=== PATIENT | female | born 1970 | race Caucasian/White ===

== ENCOUNTER → 2018-03-13 18:25 | Outpatient (CLI) | payer OTHER, SELFPAY ==
[2018-03-13 14:54] VITALS: BMI 24.1
[2018-03-19 09:18] LABS: HPV APTIMA, High Risk Negative (Negative)
--- OUTSIDE RECORDS SUMMARY | 2018-05-15 23:24 | XMS RPT_ITS ---
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 [address] [place] [address] OFFICE VISIT Date of Service: 03/13/18 MR#: [id number] Acct: [id number] Name: MALACHI DUKE Rep #: [id number] : 1970 Provider: Debbie Guillen MD Age/Sex: 47/F [place] [facility] [place]: [place]igned Intake Vital Signs03/13/18 Height 5 ft 1 in 03/13/18 Weight: 128 lb 03/13/18 Body Mass Index (BMI) 24.1 03/13/18 Blood Pressure 100/70 Intake Visit Reasons: ANNUAL Chief Complaint: est annual Vegetable Inspector Required: No Is patient in pain?: No Allergies No Known Allergies Allergy (Unverified 03/13/18 14:54) Medications NK 03/13/18 [History Confirmed 03/13/18] Is last menstrual period known: No Post menopausal: No Patient : No : No PFSH Family History Mother Hypertension CVA (cerebral vascular accident) Hyperlipidemia Thyroid disorder Father Cancer kidney brain Social History Smoking Status: Never smoker alcohol intake: never substance use type: does not use caffeine: Yes what type of physical activity do you participate in: walking seatbelt use: always do you feel safe at home: Yes 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 DateName GA/Weeks Outcome Route Bt WeighInfant GeLabor LgtAnesthesiDel LocatProvider FOB t n h a n HPI ANNUAL: Details: MALACHI DUKE is a 47 year old who presents for annual exam. 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 History of abnormal PAP: no Last mammogram: due History of abnormal mammogram: no Colon cancer screening: Other preventative health care screenings: pcp- dr acuna Female Reproductive History Cycle Length: 21-35 Bleeding Duration: 4 Control Method: vasectomy Questions: Metorrhagia: No, Sexually active: Yes, Dyspareunia: No, PCB: No ROS Const Constitutional: Reports as per HPI; denies poor appetite, fatigue, increased appetite, weight gain or weight loss Cardio Card: Denies chest pain Resp Resp: Denies dyspnea or cough GI GI: Reports as per HPI; denies bloating, abdominal pain, constipation, vomiting or nausea : Reports as per HPI and other; denies blood in urine, vaginal odor, vaginal itching, vaginal dryness, vaginal discharge, urinary urgency, urinary incontinence, urinary frequency, pelvic pain, painful urination, difficulty urinating, prolapse symptoms or nipple discharge Skin Skin/Breast: Denies breast pain, breast skin changes, nipple discharge, breast lump or changing lesions Exam Const General: cooperative, healthy appearing, comfortable, no acute distress, well developed, well groomed HENND Head: normal to inspection, normocephalic Ears: hearing grossly normal bilaterally, external ears normal Nose: external nose normal Face and sinus: normal facial exam Neck Neck: normal visual inspection, full ROM, no lymphadenopathy Thyroid: thyroid normal Chest Chest palpation AND inspection: normal inspection of the chest Breast inspection: normal inspection of the breasts, normal inspection of the axillae Breast palpation: normal palpation of the breasts, normal palpation of the axillae, no axillary lymphadenopathy Resp Effort AND Inspection: normal respiratory effort GI Inspection: normal to inspection, non-distended Palpation: no guarding, soft, no hepatosplenomegaly General: bladder normal to palpation External Female Exam: normal external appearance, normal appearance of the urethra, no lesions Urethra: normal appearance of the urethra, normal palpation Speculum Exam - Vagina: normal appearance of the vagina, normal vaginal discharge Speculum Exam - Cervix: normal appearance of the cervix, no cervical discharge, no lesions, nontender Bimanual Exam- Vagina AND Uterus: No cervical tenderness, normal bimanual exam, uterine size normal, bladder normal to palpation, uterine mobility normal, uterine consistency normal, uterus non-tender, no cervical motion tenderness Bimanual Exam- Adnexa, other: normal adnexae, no adnexal masses, adnexae non-tender Skin General: no rashes or lesions noted Neuro General: alert, moves all extremities, no focal motor deficits Extrem General: no pedal edema, normal to inspection Psych Appearance: grossly normal Mental Status: mental status grossly normal Affect: normal affect Speech and Movement: speech and movement normal Attitude: cooperative Assessment AND Plan Problems 1. Encounter for gynecological examination without abnormal finding Z01.419 Plan Cervical cancer screening: pap hpv Breast cancer screening: lam scr mamm other health maintenance examination reviewed and orders placed if needed. Encouraged maintenance of a healthy weight and active lifestyle and handout given. Annual exam handout including recommendations for good health guidelines, Calcium/vitamin D recommendations, and basic screening information given. Problem list up to date, see problem list details for any additional plan information. Follow up in one year for annual health maintenance exam or sooner if needed. Orders Orders: Coding Level of Care Code Off vis,new,prev 40-64yrs Diagnoses Encounter for gynecological examination without abnormal finding Z01.419 Gynecological examination findings: abnormal findings ABSENT 03/13/18 0964 <Electronically signed by Debbie Guillen MD> Date Debbie Castillo Signature: Date (if applicable) CC: ALLERGIES ALLERGIES DATE TYPE / CODE NAME / CODE REACTION SEVERITY SOURCE 03/13/2018 Drug No Known Unknown [facility] Allergy/4160 Allergies/F00 Hospital 17521(SNOMED [id number](RXNOR Repository CT) M) ENCOUNTERS ENCOUNTERS ADMIT/DISCHARGE ACCOUNT ADMITTING ENCOUNTER LOCATION SOURCE NUMBER CLASS 03/13/2018 [id number] Ambulatory [place] [facility] ing:[facility]SPEC Repository 03/13/2018/ [id number] Ambulatory BMSBuilding:Александр Sarkar [address] Repository PAYERS PAYERS ENCOUNTER GUARANTOR PAYER SUBSCRIBER SOURCE 03/13/2018 MALACHI A Primary MALACHI A [place] [id number] [facility] [id number] Number: Repository [id number]: [id number] (HP) Date:2487-06-21[address] [address]YE: 03/13/2018 Secondary NOT GIVENUNK [place] Insurance:SELF PAY [facility] Number: Effective Repository Date:2018-03-13 03/13/2018 MALACHI A Primary MALACHI A [place] [id number] [facility] [id number] Number: Repository [id number]: [phone] [id number] (HP) Date:[id number] [address]RH: 03/13/2018 Secondary NOT GIVENUNK [place] Insurance:SELF PAY [facility] Number: Effective Repository Date:2018-03-01
== END ==
PROVIDERS: Family Provider Family Medicine; PCP Family Medicine; Referring Provider Obstetrics & Gynecology; Visit Provider Obstetrics & Gynecology
DX: Z12.4 Encounter for screening for malignant neoplasm of cervix (principal)
CPT/HCPCS: 87624; 88175; G0145

== ENCOUNTER → 2018-04-20 15:00 | Outpatient (CLI) | payer OTHER, SELFPAY ==
[2018-03-13 14:54] VITALS: BMI 24.1
--- NOTE | 2018-04-20 15:11 | BI_ITS ---
MAMMOGRAPHY - BILATERAL SCREENING REASON FOR EXAM: Female, 47 years old. Routine annual screening examination. PERTINENT HISTORY: Non-contributory. TECHNIQUE: Digital bilateral breast waqar (3D mammographic acquisition) in the CC and MLO projections. 2-D mediolateral oblique (MLO) and craniocaudad (CC) views of both breasts were obtained. CAD: Full Field Digital Mammography with Computer Added Detection was performed. COMPARISON: Comparison is made with prior outside examination dated December 04, 2015. FINDINGS: Breast Composition: The breasts are extremely dense, which lowers the sensitivity of mammography. There are no dominant masses or suspicious calcifications. Stable appearance of the small bilateral axillary lymph nodes. No other significant abnormalities are identified. There has been no significant change since the prior study. BI/SCREENING MAMM (CAD), BILAT IMPRESSION: Stable bilateral screening mammogram. Yearly follow-up mammogram recommended. (A) ASSESSMENT CATEGORY: BIRADS Category 2: Benign. A letter regarding these results will be sent to the patient by the facility within 30 days. Approximately 10% of breast cancers are not detected by mammography. A normal mammogram should not delay biopsy of a clinically suspicious abnormality. [id number] Electronically Signed: Alfonso Banegas, at 9:02 EST , Service support ,
== END ==
PROVIDERS: Family Provider Family Medicine; PCP Family Medicine; Referring Provider Obstetrics & Gynecology; Visit Provider Obstetrics & Gynecology
DX: Z12.31 Encounter for screening mammogram for malignant neoplasm of breast (principal)
CPT/HCPCS: 77063; 77067

== ENCOUNTER → 2019-02-21 15:55 | Outpatient (CLI) | payer OTHER, SELFPAY ==
[2018-03-13 14:54] VITALS: BMI 24.1
== END ==
PROVIDERS: Family Provider Family Medicine; PCP Family Medicine; Referring Provider Family Medicine; Visit Provider Family Medicine
DX: N39.0 Urinary tract infection, site not specified (principal)
CPT/HCPCS: 87077; 87086; 87088; 87186

== ENCOUNTER → 2019-04-22 12:38 | Outpatient (CLI) | payer OTHER, SELFPAY ==
[2018-03-13 14:54] VITALS: BMI 24.1
[2019-03-18 14:49] VITALS: BMI 24.1
--- NOTE | 2019-04-22 12:39 | BI_ITS ---
MAMMOGRAPHY - BILATERAL SCREENING REASON FOR EXAM: Female, 48 years old. Routine annual screening examination. PERTINENT HISTORY: Non-contributory. TECHNIQUE: Digital bilateral breast conchis (3D mammographic acquisition) in the CC and MLO projections. 2-D mediolateral oblique (MLO) and craniocaudad (CC) views of both breasts were obtained. CAD: Full Field Digital Mammography with Computer Added Detection was performed. COMPARISON: Comparison is made with prior study dated April 20, 2018. FINDINGS: Breast Composition: The breasts are extremely dense, which lowers the sensitivity of mammography. There are no dominant masses or suspicious calcifications. Stable small benign-appearing bilateral axillary lymph nodes. No other significant abnormalities are identified. There has been no significant change since the prior study. BI/SCREEN MAMM (CAD) W/CONCHIS BILAT IMPRESSION: Stable bilateral screening mammogram. Yearly follow-up mammogram recommended. (A) ASSESSMENT CATEGORY: BIRADS Category 2: Benign. A letter regarding these results will be sent to the patient by the facility within 30 days. Approximately 10% of breast cancers are not detected by mammography. A normal mammogram should not delay biopsy of a clinically suspicious abnormality. [id number] Electronically Signed: Alfonso Banegas, at 13:24 EST , Service support ,
== END ==
PROVIDERS: Family Provider Family Medicine; PCP Family Medicine; Referring Provider Obstetrics & Gynecology; Visit Provider Obstetrics & Gynecology
DX: Z12.31 Encounter for screening mammogram for malignant neoplasm of breast (principal)
CPT/HCPCS: 77063; 77067

== ENCOUNTER → 2020-04-23 10:27 | Outpatient (CLI) | payer OTHER, SELFPAY ==
[2019-03-18 14:49] VITALS: BMI 24.1
[2020-04-23 09:46] VITALS: BMI 24.3
--- NOTE | 2020-04-23 10:35 | BI_ITS ---
MAMMOGRAPHY - BILATERAL SCREENING REASON FOR EXAM: Female, 49 years old. Routine annual screening examination. PERTINENT HISTORY: Non-contributory. TECHNIQUE: Digital bilateral breast conchis (3D mammographic acquisition) in the CC and MLO projections. 2-D mediolateral oblique (MLO) and craniocaudad (CC) views of both breasts were obtained. CAD: Full Field Digital Mammography with Computer Added Detection was performed. COMPARISON: Comparison is made with prior examination dated 04/22/2019 and 04/20/2018. FINDINGS: Breast Composition: The breasts are extremely dense, which lowers the sensitivity of mammography. There are no dominant masses or suspicious calcifications. No other significant abnormalities are identified. There has been no significant change since the prior study. BI/SCRN MAMM (CAD)W/CONCHIS BILAT IMPRESSION: Stable bilateral screening mammogram. Yearly follow-up mammogram recommended. (A) ASSESSMENT CATEGORY: BIRADS Category 1: Negative. A letter regarding these results will be sent to the patient by the facility within 30 days. Approximately 10% of breast cancers are not detected by mammography. A normal mammogram should not delay biopsy of a clinically suspicious abnormality. [id number] Electronically Signed: Alfonso Banegas MD at 11:14 EST , Service support ,
[2020-04-29 15:55] LABS: HPV APTIMA, High Risk Negative
== END ==
PROVIDERS: PCP Family Medicine; Referring Provider Obstetrics & Gynecology; Visit Provider Obstetrics & Gynecology
DX: Z12.31 Encounter for screening mammogram for malignant neoplasm of breast (principal); Z12.4 Encounter for screening for malignant neoplasm of cervix
CPT/HCPCS: 77063; 77067; 87624; 88175; G0145

== ENCOUNTER → 2020-04-23 | Outpatient (CLI) | payer OTHER, SELFPAY ==
[2020-04-23 09:46] VITALS: BMI 24.3
== END | disposition home or self-care (01) ==
LOC: LABSPEC 17:18
PROVIDERS: PCP Family Medicine; Visit Provider Obstetrics & Gynecology
DX: Z00.00 Encounter for general adult medical examination without abnormal findings (principal)
CPT/HCPCS: 87624; 88175; G0145

== ENCOUNTER 2021-04-26 12:28 | Outpatient (CLI) | payer OTHER, SELFPAY ==
--- NOTE | 2021-04-26 12:31 | BI_ITS ---
MAMMOGRAPHY - BILATERAL SCREENING REASON FOR EXAM: Female, 50 years old. Routine annual screening examination. PERTINENT HISTORY: Non-contributory. TECHNIQUE: Digital bilateral breast conchis (3D mammographic acquisition) in the CC and MLO projections. 2-D mediolateral oblique (MLO) and craniocaudad (CC) views of both breasts were obtained. CAD: Full Field Digital Mammography with Computer Added Detection was performed. COMPARISON: Comparison is made with prior study dated 04/23/2020 and 04/22/2019. FINDINGS: Breast Composition: The breasts are extremely dense, which lowers the sensitivity of mammography. There are no dominant masses or suspicious calcifications. No other significant abnormalities are identified. There has been no significant change since the prior study. BI/SCRN MAMM (CAD)W/CONCHIS BILAT IMPRESSION: Stable bilateral screening mammogram. Yearly follow-up mammogram recommended. (A) ASSESSMENT CATEGORY: BIRADS Category 1: Negative. A letter regarding these results will be sent to the patient by the facility within 30 days. Approximately 10% of breast cancers are not detected by mammography. A normal mammogram should not delay biopsy of a clinically suspicious abnormality. [id number] Electronically Signed: Alfonso Banegas MD at 12:59 EST ,
== END 2021-04-26 23:59 | disposition home or self-care (01) ==
LOC: OPBI 12:29
PROVIDERS: PCP Family Medicine; Visit Provider Obstetrics & Gynecology
DX: Z12.31 Encounter for screening mammogram for malignant neoplasm of breast (principal)
CPT/HCPCS: 77063; 77067

== ENCOUNTER → 2022-05-06 | Outpatient (CLI) | payer OTHER, SELFPAY ==
--- NOTE | 2022-05-06 13:58 | BI_ITS ---
MAMMOGRAPHY - BILATERAL SCREENING 3-D TOMOSYNTHESIS REASON FOR EXAM: Female, 51 years old. Routine screening PERTINENT HISTORY: No significant family history. TECHNIQUE: 2-D mammograms and 3-D Tomosynthesis of the breast (s) were performed. CAD was performed. COMPARISON: 04/22/2019 FINDINGS: The breast composition is heterogeneously dense that can obscure small breast masses. Scattered benign calcifications are seen. No dense spiculated masses or suspicious microcalcifications are identified. No architectural distortion is identified. There is no skin thickening or retraction. There has been no significant change since the prior study. BI/SCRN MAMM (CAD)W/CONCHIS BILAT IMPRESSION: No mammographic signs of malignancy. Routine yearly mammograms recommended. ASSESSMENT CATEGORY: BIRADS Category 2: Benign. A letter regarding these results will be sent to the patient by the facility within 30 days. FOLLOW UP RECOMMENDATION: Yearly follow up mammogram recommended. (A) Approximately 10% of breast cancers are not detected by mammography. A normal mammogram should not delay biopsy of a clinically suspicious abnormality. Electronically Signed: Jean-Claude Fischer MD at 14:27 EDT ,
== END | disposition home or self-care (01) ==
LOC: OPBI 13:56
PROVIDERS: PCP Family Medicine; Referring Provider Obstetrics & Gynecology; Visit Provider Obstetrics & Gynecology
DX: Z12.31 Encounter for screening mammogram for malignant neoplasm of breast (principal)
CPT/HCPCS: 77063; 77067

== ENCOUNTER → 2023-05-08 | Outpatient (CLI) | payer BC, SELFPAY ==
--- NOTE | 2023-05-08 13:37 | BI_ITS ---
MAMMOGRAPHY - BILATERAL SCREENING REASON FOR EXAM: Female, 52 years old. Routine annual screening examination. PERTINENT HISTORY: Non-contributory. TECHNIQUE: Digital bilateral breast conchis (3D mammographic acquisition) in the CC and MLO projections. 2-D mediolateral oblique (MLO) and craniocaudad (CC) views of both breasts were obtained. CAD: Full Field Digital Mammography with Computer Added Detection was performed. COMPARISON: Comparison is made with prior study dated May 06, 2022 and April 26, 2021. FINDINGS: Breast Composition: The breasts are extremely dense, which lowers the sensitivity of mammography. There are no dominant masses or suspicious calcifications. Stable small benign-appearing bilateral axillary lymph nodes. No other significant abnormalities are identified. There has been no significant change since the prior study. BI/SCRN MAMM (CAD)W/CONCHIS BILAT IMPRESSION: Stable bilateral screening mammogram. Yearly follow-up mammogram recommended. (A) ASSESSMENT CATEGORY: BIRADS Category 2: Benign. A letter regarding these results will be sent to the patient by the facility within 30 days. Approximately 10% of breast cancers are not detected by mammography. A normal mammogram should not delay biopsy of a clinically suspicious abnormality. [id number] Electronically Signed: Alfonso Banegas MD at 14:53 EDT ,
== END | disposition home or self-care (01) ==
LOC: OPBI 13:37
PROVIDERS: PCP Family Medicine; Referring Provider Obstetrics & Gynecology; Visit Provider Obstetrics & Gynecology
DX: Z12.31 Encounter for screening mammogram for malignant neoplasm of breast (principal)
CPT/HCPCS: 77063; 77067

== ENCOUNTER → 2024-05-24 | Outpatient (CLI) | payer BC, SELFPAY ==
--- NOTE | 2024-05-24 13:41 | BI_ITS ---
EXAM: SCRN MAMM (CAD)W/CONCHIS BILAT 05/24/2024 CLINICAL HISTORY: F, Age 53 y/o , BREAST CANCER SCREENING TECHNIQUE: Bilateral screening digital breast tomosynthesis with 2D and 3D images. Computer aided detection. COMPARISON: Prior exam(s) dated 05/08/2023. FINDINGS: TISSUE DENSITY: The breast tissue is heterogenously dense, which may obscure small masses. The mammogram demonstrates that the patient has dense breasts. Supplemental screening with whole breast ultrasound or MRI may be considered for further evaluation. Bilateral Breast Mammographic Findings: No significant masses, calcifications or other abnormalities are identified. BI/SCRN MAMM (CAD)W/CONCHIS BILAT IMPRESSION: Right Breast: BIRADS 1 NEGATIVE. Left Breast: BIRADS 1 NEGATIVE. OVERALL FINAL ASSESSMENT: BIRADS 1 NEGATIVE. RECOMMENDATION: Routine annual follow-up in 1 Year A letter with findings and recommendations will be mailed to the patient. Reading Location: [id number]
== END | disposition home or self-care (01) ==
LOC: OPBI 13:40
PROVIDERS: PCP Family Medicine; Referring Provider Obstetrics & Gynecology; Visit Provider Obstetrics & Gynecology
DX: Z12.31 Encounter for screening mammogram for malignant neoplasm of breast (principal)
CPT/HCPCS: 77063; 77067

== ENCOUNTER → 2024-12-09 | Outpatient (CLI) | payer OTHER, SELFPAY ==
--- NOTE | 2024-12-09 12:54 | US_ITS ---
PROCEDURE: PELVIC W/ TRANSVAGINAL REASON FOR EXAM: PMB LMP: November 26, 2024. TECHNIQUE: Procedure Code: USPELTVAG Modality: US Procedure: PELVIC W/ TRANSVAGINAL COMPARISON: None FINDINGS: Measurements: Uterus: 8.5 cm x 5.4 cm x 4.3 cm with a volume of 114.7 mL Endometrial Thickness: 6 mm. It is hyperechoic. Right Ovary: 2.7 cm x 2 cm x 1.1 cm with a volume of 3 mL. Left Ovary: 4.6 cm x 5 cm x 2.9 cm with a volume of 34.5 mL. TRANSABDOMINAL: Uterus: Heterogeneous echotexture of the uterine myometrium suggestive of fibroid change although no focal fibroid is seen. Endometrium: 6 mm. It is thickened for the postmenopausal phase. Right ovary: Normal size and echotexture. Left ovary: There is a 4 cm x 4.1 cm x 2.3 cm left ovarian cyst. Other: No large pelvic mass identified. Transvaginal sonography was performed to better visualize the endometrium. TRANSVAGINAL: Uterus: Heterogeneous echotexture suggestive of fibroid change. Endometrium: 6 mm. It is thickened. Right ovary: Normal size and echotexture. Left ovary: There is a 4 cm x 4.1 cm 2.3 cm left ovarian cyst. Other adnexal findings: None. Cul-de-sac: No free intraperitoneal fluid identified. Tenderness: No tenderness US/Pelvic w/ Transvaginal IMPRESSION: Left ovarian cyst. Heterogeneous echotexture of the uterus in keeping with fibroid change. Reading Location: [place] [address]
== END | disposition home or self-care (01) ==
PROVIDERS: PCP Family Medicine; Referring Provider Obstetrics & Gynecology; Visit Provider Obstetrics & Gynecology
DX: N95.0 Postmenopausal bleeding (principal)
CPT/HCPCS: 76830; 76856

== ENCOUNTER → 2024-12-16 | Outpatient (CLI) | payer OTHER, SELFPAY ==
--- NOTE | 2024-12-16 | EMB_PTH ---
PATIENT: MALACHI DUKE LOC: [facility] U#:[id number] AGE/SX: 53/F ROOM: RE12/16/[address]: BRYNN Chavez : 1970 BED: DIS: 12/16/2024 SPEC #: [id number] RECD: 12/16/24 17:07 STATUS: MARISSA BEATRIS #: [id number] MITRA: 12/16/24 00:[address]: Candice Kumar NP DEPT: SURGICAL PATHOLOGY RECD BY: Mejia Prasad Tissues: A - Endometrium, NOS Procedures: Surgery Specimen Level IV HEADER OPERATION: Endometrial biopsy PRE-OP DIAGNOSIS: Post menopausal bleeding TISSUE SUBMITTED: A- Endometrial lining MICROSCOPIC DIAGNOSIS A. Endometrium, biopsy: - Proliferative endometrium. MICROSCOPIC DESCRIPTION Slides are reviewed. GROSS DESCRIPTION A. Received in formalin labeled with the patient's name and date of is a 2.7 x 1.7 x 0.2 cm aggregate of mucoid material and flecks of thomas tissue. Entirely submitted in 1 cassette. NC 12/17/2024 CPT:32380
== END | disposition home or self-care (01) ==
LOC: LABSPEC 16:16
PROVIDERS: Visit Provider Nurse Practitioner Women's Health
DX: N95.0 Postmenopausal bleeding (principal)
CPT/HCPCS: 88305

== ENCOUNTER → 2025-01-20 | Outpatient (CLI) | payer OTHER, SELFPAY ==
--- NOTE | 2025-01-20 14:28 | US_ITS ---
PROCEDURE: PELVIC W/ TRANSVAGINAL 01/20/2025 REASON FOR EXAM: LEFT OVARIAN CYST TECHNIQUE: Procedure Code: USPELTVAG Modality: US Procedure: PELVIC W/ TRANSVAGINAL COMPARISON: 09 December 2024. FINDINGS: Uterus: The uterus measures 7.8 x 4.5 x 3.7 cm. Heterogenous appearance without evidence of discrete cyst, echogenic calculi, or mass. The endometrial stripe measures 3 mm. Multiple simple nabothian cysts visualized in the cervix. Right ovary: The right ovary is normal in size measuring 1.5 x 1.4 x 1.3 cm. No suspicious masses. Blood flow to the adnexa is normal with arterial and venous waveforms documented. Left ovary: The left ovary is normal in size measuring 1.6 x 1.5 x 1.4 cm. No suspicious masses. Blood flow to the adnexa is normal with arterial and venous waveforms documented. BLADDER: The bladder wall measures less than less than 3 mm. The ureteral jets were notseen. Prevoid bladder volume is 456 ml. No ascites. US/Pelvic w/ Transvaginal IMPRESSION: 1. No evidence of acute ovarian torsion. 2. Heterogenous uterus without evidence of discrete mass. 3. Resolution of the previously seen left ovarian cyst. Reading Location: [id number]
--- OUTSIDE RECORDS SUMMARY | 2025-01-20 19:36 | XMS RPT_ITS | CCD ---
Author Organization [facility] Care Team Providers Care Molding Engineer Name Role Phone MD Dell Ruggiero Referring Provider Breonna larsilaDr. Debbie Browne Attending Provider [phone] Dr. Dell Michaud Primary Care Provider Dr. Dell Michaud Primary Care Provider [phone] Dr. Dell Michaud Referring Provider Dr. Debbie Guillen Attending Provider Keily MULLEN, Dr. Gonzalez Primary Care Provider Wilmer MULLEN, Dr. Lewis Attending Provider Dr. Debbie Guillen MD Referring Provider Keily MULLEN, Dr. Gonzalez Referring Provider [phone] Debbie Guillen Attending Unavailable Debbie Guillen Referring Unavailable Carlos Michaud Primary Care Unavailable [place] DRIVER STARTING GATE, Candice Attending Unavailable Carlos Michaud Referring Unavailable [place] DRIVER STARTING GATECandice Attending Unavailable Stacy DRIVER STARTING GATE Candice Referring Un[facility] Unavailable [place] DRIVER STARTING GATE, Candice Attending Unavailable Carlos Michaud Referring Unavailable Debbie Guillen Attending [facility] Unavailable Debbie Guillen Attending Unavailable Debbie Guillen Referring Unavailable [facility] Unavailable Problems Active Problems Problem Classification Problem Date Documented Date Episodic/Chronic Cancer of cervix (4 sources) Atypical squamous cells of undetermined significance on cervical Papanicolaou smear; Translations: [Atypical squamous cells of undetermined significance on cytologic smear of cervix (ASC-US)] 03-19-2018 Episodic Comment on above: repeat pap in 3 year s Menopausal disorders (2 sources) Postmenopausal bleeding; Translations: [Postmenopausal bleeding] Onset: 12-19-2024 Chronic Menstrual disorders (1 source) Amenorrhea, unspecified; Translations: [Amenorrhea, unspecified] Onset: 12-16-2024 Chronic Other screening for suspected conditions (not mental disorders or infectious disease) (1 source) Abnormal findings on diagnostic imaging of other specified body structures; Translations: [Abnormal findings on diagnostic imaging of other specified body structures] Onset: 12-16-2024 Chronic Ovarian cyst (2 sources) Unspecified ovarian cyst, left side; Translations: [Unspecified ovarian cyst, left side] Onset: 12-16-2024 Episodic Past or Other Problems Problem Classification Problem Date Documented Da te Episodic/Chronic Other screening for suspected conditions (not mental disorders or infectious disease) (3 sources) Patient encounter status; Translations: [Encounter for other screening for malignant neoplasm of breast] Onset: 06-21-2024 12-19-2022 Episodic Results Test Name Value Interpretation Reference Range Facility Gyn Office Visit Reporton 12-16-2024 Gyn Office Visit Report [facility] [address], [address] [place] [address] OFFICE VISIT Date of Service: 12/16/24 MR#: [id number] Acct: [id number] Name: MALACHI DUKE Rep #: [id number] : 1970 Provider: BRYNN mitchell Age/Sex: 53/F Location: [facility] Status: Signed Intake Vital Signs 05/24/24 14:17 12/16/24 14:00 12/16/24 14:15 Height 5 ft 1 in 5 ft 1 in 5 ft 1 in Weight: 139 lb 7 oz BMI 26.3 BP 133/87 H Intake Visit Reasons: PMB, possible EMB 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 Is patient in pain?: No Allergies No Known Allergies Allergy (Verified 12/16/24 14:23) Medications ???Medication ???Instructions ???Recorded ???Confirmed ???Type NK 03/13/18 12/16/24 History Is last menstrual period known: No Post menopausal: Yes Patient : No : No PFSH PFSH Family History Mother Hypertension CVA (cerebral vascular accident) Hyperlipidemia Thyroid disorder Father Cancer kidney brain Grandfather Colon cancer Social History Smoking Status: Never smoker alcohol intake: never substance use type: does not use caffeine: Yes what type of physical activity do you participate in: walking frequency: 5-6 times per week seatbelt use: always do you feel safe at home: Yes 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 Date Name GA/Weeks Outcome Route Bth Weight Gen Labor Lgth Anesthesia Del Locatn Provider FOB Unknown 1997 [facility] live - full term Unknown 1999 John Unknown 2003 Mahendra Unknown 2007 [facility] PMB, possible EMB Details: MALACHI DUKE is a 53 year old who presents for postmenopausal. Had light spotting and some clotting almost 3 weeks. No menses since May 2023 US indicates endometrial lining of 6mm ROS Const Constitutional: Reports system reviewed and no additional complaints, except as documented Eyes Eyes: Reports system reviewed and no additional complaints, except as documented GI GI: Denies abdominal pain or change in bowel habits : Reports as per HPI Exam Const General: cooperative and no acute distress Orientation: oriented x3 General: bladder normal to palpation External Female Exam: normal external appearance and normal appearance of the urethra Urethra: normal appearance of the urethra Speculum Exam - Vagina: normal appearance of the vagina, normal vaginal discharge, no lesions and nontender Speculum Exam - Cervix: normal appearance of the cervix Bimanual Exam- Vagina Uterus: normal bimanual exam, uterine size normal, bladder normal to palpation, uterine shape normal, uterine mobility normal and non-tender Bimanual Exam- Adnexa, other: normal adnexae, no masses and non-tender Office Procedures Endometrial Biopsy Endometrial Biopsy Test: Yes Negative Consent Signed: Yes Time out checklist: patient, procedure, site marked/identified, positioning of patient, supplies available, allergies confirmed and team agrees on procedure Time out time: 14:20 tenaculum used: Yes dilator used: No Details: Cervix prepped with betadine and syringe pipelle inserted 7cm into uterus without complication. Specimen obtained and sent to lab for analysis. All instruments removed from vagina without comp lications. Excellent hemostasis noted. Results POC Urine Office , Urine Negative Last Edit by Nessa Hanson on 12/16/24 14:16 Coding Level of Care Code Attention Isauro Diagnoses Postmenopausal bleeding N95.0 Left ovarian cyst N83.202 Thickened endometrium R93.89 CPT Codes Endometrial Biopsy (85247) Assessment and Plan Assessment and Plan (1) Postmenopausal bleeding: Status: Acute Comment: lining 6mm. EMB pending (2) Left ovarian cyst: Status: Acute Comment: 4cm, fluid filled.Rpt 6 wk (3) Thickened endometrium: Status: Acute Comment: 6mm Orders: Orders Endometrial Biopsy Today N83.202 - Unspecified ovarian cyst, left side, N95.0 - Postmenopausal bleeding POC Urine Today N91.2 - Amenorrhea, unspecified Pelvic w/ Transvaginal 5 Weeks N83.202 - Unspecified ovarian cyst, left side, N95.0 - Postmenopausal bleeding Plan Reviewed S S infection If normal EMB, no further management unless bleeding recurs Rpt US 6 wks from last one to recheck ovary. 12/16/24 1433 Date Candice Mahajan (more content not included)... Normal [facility] Surgery Specimen Level Nicole 12-16-2024 Surgery Specimen Level IV Patient Age/Sex Location Account Attending Physician NEELMARIECHARLESMALACHI OBDULIA 53/F LABSPEC [id number] BRYNN Chavez Specimen: [id number] Received: 12/16/24 Status: MARISSA Monroe Num: [id number] Spec Type: ENRIKE JOHNSON/C Kyler Dr: BRYNN Chavez HEADER OPERATION: Endometrial biopsy PRE-OP DIAGNOSIS: Post menopausal bleeding TISSUE SUBMITTED: A- Endometrial lining MICROSCOPIC DIAGNOSIS A. Endometrium, biopsy: - Proliferative endometrium. MICROSCOPIC DESCRIPTION Slides are reviewed. GROSS DESCRIPTION A. Received in formalin labeled with the patient's name and date of is a 2.7 x 1.7 x 0.2 cm aggregate of mucoid material and flecks of thomas tissue. Entirely submitted in 1 cassette. UT 12/17/2024 CPT:18067 Patient Age/Sex Location Account Attending Physician LEILANIMALACHI OBDULIA 53/F LABSPEC [id number] Canidce Kumar NP-Beatriz Signed (signature on file) Dr. Sarita Toro MD 12/27/[address] [facility] Comment on above: Performed By: #### P SUDHAVAL #### [facility] [address] [place], [place], [id number] Pelvic w/ Transvaginalon Pelvic w/ Transvaginal [facility] Imaging Services [address] [place], [place] [id number] Pelvic w/ Transvaginal MR#: [id number] Acct: [id number] Name: NEELMALACHI HIGGINS OBDULIA Rep #: [id number] : 1970 F 53 From: Alfonso han MD PCP: Dr. Carlos Michaud MD Status: REG CLI Study: Pelvic w/ Transvaginal Date of Exam: 12/09/24 Exam# [id number] Ordering Dr: Debbie Guillen PROCEDURE: PELVIC W/ TRANSVAGINAL REASON FOR EXAM: PMB LMP: November 26, 2024. TECHNIQUE: Procedure Code: [id number] Modality: US Procedure: PELVIC W/ TRANSVAGINAL COMPARISON: None FINDINGS: Measurements: Uterus: 8.5 cm x 5.4 cm x 4.3 cm with a volume of 114.7 mL Endometrial Thickness: 6 mm. It is hyperechoic. Right Ovary: 2.7 cm x 2 cm x 1.1 cm with a volume of 3 mL. Left Ovary: 4.6 cm x 5 cm x 2.9 cm with a volume of 34.5 mL. TRANSABDOMINAL: Uterus: Heterogeneous echotexture of the uterine myometrium suggestive of fibroid change although no focal fibroid is seen. Endometrium: 6 mm. It is thickened for the postmenopausal phase. Right ovary: Normal size and echotexture. Left ovary: There is a 4 cm x 4.1 cm x 2.3 cm left ovarian cyst. Other: No large pelvic mass identified. Transvaginal sonography was performed to better visualize the endometrium. TRANSVAGINAL: Uterus: Heterogeneous echotexture suggestive of fibroid change. Endometrium: 6 mm. It is thickened. Right ovary: Normal size and echotexture. Left ovary: There is a 4 cm x 4.1 cm 2.3 cm left ovarian cyst. Other adnexal findings: None. Cul-de-sac: No free intraperitoneal fluid identified. Tenderness: No tenderness US/Pelvic w/ Transvaginal IMPRESSION: Left ovarian cyst. Heterogeneous echotexture of the uterus in keeping with fibroid change. Reading Location: [place] [address] CC: Dr. Carlos Michaud MD; Dr. Debbie Guillen MD Metal Bonder: Signed Normal [facility] Breast imaging reportOrdered By: Sara Tolbert on 05-24-2024 Study report [facility] Imaging Services [address] [place], [place] [address] SCRN MAMM (CAD)W/CONCHIS BILAT MR#: [id number] Acct: [id number] Name: MALACHI DUKE Rep #: [id number] : 1970 F 53 From: Rox Tolbert MD PCP: Dr. Carlos Michaud MD Status: [facility] CLI Study:SCRN MAMM (CAD)W/CONCHIS BILAT Date of Exa m: 05/24/24 Exam# [id number] Ordering Dr: Debbie Bob MD EXAM: SCRN MAMM (CAD)W/CONCHIS BILAT 05/24/2024 CLINICAL HISTORY: F, Age 53 y/o , BREAST CANCER SCREENING TECHNIQUE: Bilateral screening digital breast tomosynthesis with 2D and 3D images. Computeraided detection. COMPARISON: Prior exam(s) dated 05/08/2023. FINDINGS: TISSUE DENSITY: The breast tissue is heterogenously dense, which may obscure small masses. The mammogram demonstrates that the patient has dense breasts. Supplemental screening with whole breast ultrasound or MRI may be considered for further evaluation. Bilateral Breast Mammographic Findings: No significant masses, calcifications or other abnormalities are identified. BI/SCRN MAMM (CAD)W/CONCHIS BILAT IMPRESSION: Right Breast: BIRADS 1 NEGATIVE. Left Breast: BIRADS 1 NEGATIVE. OVERALL FINAL ASSESSMENT: BIRADS 1 NEGATIVE. RECOMMENDATION: Routine annual follow-up in 1 Year A letter with findings and recommendations will be mailed to the patient. Reading Location: [id number] CC: Dr. Carlos Michaud MD; Dr. Debbie Guillen MD ~ Metal Bonder: Signed [facility] Gyn Office Visit Reporton 05-24-2024 Gyn Office Visit Report [facility]'s [address], [address] [place] [address] OFFICE VISIT Date of Service: 05/24/24 MR#: [id number] Acct: [id number] Name: MALACHI DUKE Rep #: [id number] : 1970 Provider: Dr. 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 Is patient in pain?: No Allergies No Known Allergies Allergy (Verified 05/24/24 14:14) Medications ???Medication ???Instructions ???Recorded ???Confirmed ???Type NK 03/13/18 05/24/24 History Is last menstrual period known: Yes Last Menstrual Period: 05/27/23 Patient : No : No PFSH Family History Mother Hypertension CVA (cerebral vascular accident) Hyperlipidemia Thyroid disorder Father Cancer kidney brain Grandfather Colon cancer Social History Smoking Status: Never smoker alcohol intake: never substance use type: does not use caffeine: Yes what type of physical activity do you participate in: walking frequency: 5-6 times per week seatbelt use: always do you feel safe at home: Yes 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 Date Name GA/Weeks Outcome Route Bth Weight Infant Gen Labor Lgth Anesthesia Del Locatn Provider FOB Unknown 1997 [facility] live - full term Unknown 1999 John Unknown 2003 Mahendra Unknown 2007 [facility] Encounter for routine gynecological examination Details: MALACHI DUKE is a 53 year old who presents for annual exam. Last PAP: 04/23/2020 - normal History of abnormal PAP: 2019 ascus hpv neg Last mammogram: done today History of abnormal mammogram: Colon cancer screening: has not had done Other preventative health care screenings: PCP Keily Female Reproductive History Last Menstrual Period: 05/27/23 Questions: metorrhagia: No, sexually active: Yes, dyspareunia: No and PCB: No Menopausal Symptoms: No hot flashes, No night sweats, No weight change, No mood changes, No difficulty concentrating, No sleep problems and No change in libido ROS Const Constitutional: Reports as per HPI; Denies fatigue, increased appetite, poor appetite, night sweats, weight gain or weight loss Cardio Card: Denies chest pain Resp Resp: Denies cough or dyspnea GI GI: Reports as per HPI; Denies abdominal pain, bloating, constipation, nausea or vomiting : Reports as per HPI and other; Denies difficulty voiding, dysuria, hematuria, hot flashes, nipple discharge, pelvic pain, prolapse symptoms, urinary frequency, urinary incontinence, urinary urgency, vaginal discharge, vaginal dryness, vaginal odor or vaginal pruritus Skin Skin/Breast: Denies changing lesions, breast mass, breast pain, breast skin changes or nipple discharge Psych Psych: Denies anxiety, change in libido, depression or difficulty concentrating Exam Const General: cooperative, healthy appearing, comfortable, no acute distress, well developed and well groomed HENMT Head: normal to inspection and normocephalic Ears: hearing grossly normal bilaterally and external ears normal Nose: external nose normal Face and sinus: normal facial exam Neck Neck: normal visual inspection, full ROM and no lymphadenopathy Thyroid: thyroid normal Chest Chest palpation inspection: normal inspection of the chest Breast inspection: normal inspection of the breasts and normal inspection of the axillae Breast palpation: normal palpation of the breasts, normal palpation of the axillae and no axillary lymphadenopathy Resp Effort Inspection: normal respiratory effort GI Inspection: normal to inspection and non-distended Palpation: soft, no hepatosplenomegaly and no guarding General: bladder normal to palpation External Female Exam: normal external appearance, normal appearance of the urethra and no lesions Urethra: normal appearance of the urethra and normal palpation Speculum Exam - Vagina: normal appearance of the vagina and normal vaginal discharge Speculum Exam - Cervix: normal appearance of the cervix, no cervical discharge, no lesions and nontender Bimanual Exam- Vagina Uterus: normal bimanual exam, uterine size normal, bladder normal to palpation, No tender, uterine mobility normal, consistency normal, non-tender an (more content not included)... Normal [facility] SCRN MAMM (CAD)W/CONCHIS BILATo n 05-24-2024 SCRN MAMM (CAD)W/CONCHIS BILAT [facility] Imaging Services [address] [place] [address] SCRN MAMM (CAD)W/CONCHIS BILAT MR#: [id number] Acct: [id number] Name: MALACHI DUKE Rep #: [id number] : 1970 F 53 From: Sara Tolbert MD PCP: Dr. Carlos Michaud MD Status: REG CLI Study: SCRN MAMM (CAD)W/CONCHIS BILAT Date of Exam: 06/14 Exam# [id number] Ordering Dr: Debbie Guillen EXAM: SCRN MAMM (CAD)W/CONCHIS BILAT 05/24/2024 CLINICAL HISTORY: F, Age 53 y/o , BREAST CANCER SCREENING TECHNIQUE: Bilateral screening digital breast tomosynthesis with 2D and 3D images. Computer aided detection. COMPARISON: Prior exam(s) dated 05/08/2023. FINDINGS: TISSUE DENSITY: The breast tissue is heterogenously dense, which may obscure small masses. The mammogram demonstrates that the patient has dense breasts. Supplemental screening with whole breast ultrasound or MRI may be considered for further evaluation. Bilateral Breast Mammographic Findings: No significant masses, calcifications or other abnormalities are identified. BI/SCRN MAMM (CAD)W/CONCHIS BILAT IMPRESSION: Right Breast: BIRADS 1 NEGATIVE. Left Breast: BIRADS 1 NEGATIVE. OVERALL FINAL ASSESSMENT: BIRADS 1 NEGATIVE. RECOMMENDATION: Routine annual follow-up in 1 Year A letter with findings and recommendations will be mailed to the patient. Reading Location: [facility] CC: Dr. Carlos Michaud MD; Dr. Debbie Guillen MD Metal Bonder: Signed Normal [facility] Vital Signs Date Time Vital Sign Value Performing Clinician Adalidi jennifer 05-24-2024 14:17-0400 Body height 154.[address] Carlos Michaud MD Work Phone: [facility] 05-24-2024 14:13-0400 Body mass index (BMI) [Ratio] 25.9 kg/m2 Dr. Carlos Michaud MD Work Phone: [facility] 05-24-2024 14:13-0400 Body weight 62.[address] Carlos Michaud MD Work Phone: [facility] 05-24-2024 14:13-0400 Diastolic blood pressure 77 mm[Hg] Dr. Carlos Michaud MD Work Phone: [facility] 05-24-2024 14:13-0400 Systolic blood pressure 121 mm[Hg] Dr. Carlos Michaud MD Work Phone: [facility] 05-08-2023 14:45-0400 Body height 154.[address] Dell melgoza Work Phone: [facility] 05-08-2023 14:45-0400 Body mass index (BMI) [Ratio] 26 kg/m2 Dr. Dell Michaud Work Phone: [facility] 05-08-2023 14:45-0400 Body weight 62.[address] Dell melgoza Work Phone: [facility] 05-08-2023 14:45-0400 Diastolic blood pressure 82 mm[Hg] Dr. Dell Michaud Work Phone: [facility] 05-08-2023 14:45-0400 Systolic blood pressure 118 mm[Hg] Dr. Dell Michaud Work Phone: [facility] 05-06-2022 14:30-0400 Body height 154.94 cm MD Dell Michaud [facility] 05-06-2022 14:28-0400 Body mass index (BMI) [Ratio] 25.5 kg/m2 MD Dell Michaud [facility] 05-06-2022 14:28-0400 Body weight 61.4 kg MD Dell Michaud [facility] 05-06-2022 14:28-0400 Diastolic blood pressure 77 mm[Hg] MD Dell Michaud [facility] 05-06-2022 14:28-0400 Systolic blood pressure 130 mm[Hg] MD Dell HERNÁNDEZ [facility] Encounters Encounter Date Encounter Type Care Provider Facility Start: 01-20-2025 ambulatory Candice Kumar DRIVER STARTING GATE Facil ity:[facility] Start: 12-16-2024 End: 12-16-2024 ambulatory Candice Kumar DRIVER STARTING GATE Facility:[facility] Start: 12-16-2024 End: 12-16-2024 ambulatory Candice Stacy DRIVER STARTING GATE Facility:[facility] Start: 12-09-2024 End: 12-09-2024 ambulatory Debbie Guillen Facility:[facility] Start: 05-24-2024 Encounter for gynecological examination (general) (routine) without abnormal findings Debbie Guillen [facility] Start: 05-24-2024 End: 05-24-[address] Debbie Guillen MD [facility] Start: 05-24-2024 End: 05-24-[address] Carlos Michaud MD Work Phone: [facility] Work Phone: Start: 05-24-2024 End: 05-24-[address] Debbie Guillen MD [facility] Work Phone: Start: 05-24-2024 End: 05-24-2024 ambulatory Debbie Guillen Facility:[facility] Start: 05-08-2023 End: 05-08-[address] Dell Michaud Work Phone: [facility] Work Phone: Start: 05-08-2023 End: 05-08-[address] Dell Michaud Work Phone: [facility] Work Phone: Start: 05-06-2022 End: 05-06-2022 ambulatory MD Dell HERNÁNDEZ [facility] Work Phone: Start: 05-06-2022 End: 05-06-2022 Patient encounter procedure MD Dell HERNÁNDEZ [facility] Procedures Date Procedure Procedure Detail Performing Clinician Start: 05-24-2024 Screening mammography Adali Michaud MD Work Phone: Start: 05-08-2023 Screening mammography Adali Michaud Work Phone: Start: 05-06-2022 Screening mammography Chelle HERNÁNDEZ Plan of Treatment Date Care Activity Detail Author Start: 05-08-2023 Patient referral [facility] Work Phone: Patient referral [facility] Work Phone: Immunizations Immunization Date Immunization Notes Care Provider [facility] 01-15-2024 influenza, seasonal, injectable, preservative free Dr. Carlos Michaud MD Work Phone: [facility] 01-09-2023 influenza, injectabl e, quadrivalent, preservative free Dr. Dell Michaud Work Phone: [facility] 01-10-2022 influenza, injectabl e, quadrivalent, preservative free Dr. Dell Michaud Work Phone: [facility] 01-10-2022 influenza, seasonal, injectable MD Dell HERNÁNDEZ [facility] 01-11-2021 influenza, injectabl e, quadrivalent, preservative free Dr. Dell Michaud Work Phone: [facility] 01-11-2021 influenza, seasonal, injectable [facility] 03-25-2020 Covid (Moderna) [facility] 02-26-2020 Covid (Moderna) [facility] 01-13-2020 influenza, injectabl e, quadrivalent, preservative free Dr. Dell Michaud Work Phone: [facility] 01-13-2020 influenza, seasonal, injectable [facility] 12-11-2018 influenza, injectabl e, quadrivalent, preservative free Dr. Dell Michaud Work Phone: [facility] 12-11-2018 influenza, seasonal, injectable [facility] 01-18-2018 influenza, injectabl e, quadrivalent, preservative free Dr. Dell Michaud Work Phone: [facility] 01-18-2018 influenza, seasonal, injectable [facility] 01-18-2017 influenza, injectabl e, quadrivalent, preservative free Dr. Dell Michaud Work Phone: [facility] 01-18-2017 influenza, seasonal, injectable [facility] 01-11-2016 influenza, injectabl e, quadrivalent, preservative free Dr. Dell Michaud Work Phone: [facility] 01-11-2016 influenza, seasonal, injectable [facility] 12-22-2014 influenza, injectabl e, quadrivalent, preservative free Dr. Dell Michaud Work Phone: [facility] 12-22-2014 influenza, seasonal, injectable [facility] 01-14-2014 influenza, injectabl e, quadrivalent, preservative free Dr. Dell Michaud Work Phone: [facility] 01-14-2014 influenza, seasonal, injectable [facility] Payers Date Payer Category Payer Self-pay [id number] 2023 Unknown [id number] 2005 Unknown [facility] [id number] Unknown [facility] [id number] Unknown ANTHEM [id number] Unknown [id number] Unknown [id number] Unknown [id number] Social History Date Type Detail Facility Tobacco smoking stat [facility] Unknown if ever smoked [facility] Work Phone: Start: 1970 Sex Assigned At Female [facility] Start: 05-06-2022 End: 05-08-2023 Tobacco smoking status [facility] Unknown if ever smoked [facility] Start: 05-08-2023 Tobacco smoking stat [facility] Never smoked tobacco (finding) [facility] Start: 05-29-2024 Sex Female (finding) [facility] Evaluation note 05-24-2024 Note Date & Type Note Facility 05-24-2024 Evaluation note Diagnosis Onset Date Resolution Encounter for routine gynecological examination noneactive May 24, 2024 2:02pm [facility] Work Phone: Evaluation note Note Date & Type Note Facility Evaluation note No assessment information availa ble [facility] Work Phone: Evaluation note Note Date & Type Note Facility Evaluation note Diagnosis Onset Date Encounter for routine gyneco logical examination noneactive [facility] Work Phone: Hospital Discharge instructions Note Date & Type Note Facility Hospital Discharge instructions Ambulatory OrdersGeneral Surgery Location: None Selected [facility] Work Phone: Reason for referral (narrative) Note Date & Type Note Facility Reason for referral (narrative) No reason for referral information available [facility] Work Phone: Family History No Family History Records Found Relationship Condition Age at Onset Recorded Date/T jayjay mother Hypertension Unknown Cerebrovascular accident (CVA) Unknown Hyperlipidemia Unknown Disorder of thyroid Unknown father Malignant neoplasm Unknown Relationship Condition Age at Onset Recorded Date/T jayjay mother Hypertension Unknown Cerebrovascular accident (CVA) Unknown Hyperlipidemia Unknown Disorder of thyroid Unknown father Malignant neoplasm Unknown grandfather Malignant neoplasm of colon Unknown Chief Complaint and Reason for Visit Chief Complaint 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 Visit Encounter for routin e gynecological examination Chief Complaint Admit Date SCREENING May 24, 2024 1:36 pm 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 Dell Michaud MD Family Provider Active Dr. Dell Michaud MD Primary Care Provider Activ e Team Status: Inactive Member Role Status Dates Dell HERNÁNDEZ MD Referring Provider Active Dr. Debbie Guillen MD Attending Provider Active Dr. Dell Michaud MD Primary Care Provider Activ e Team Status: Inactive Member Role Status Dates Dr. Debbie Guillen MD Attending Provider, Referr ing Provider Active Dr. Dell Michaud MD Primary Care Provider Activ e Team Status: Inactive Member Role Status Dates Dr. Dell Michaud MD Primary Care Provider, Refe rring Provider Active Dr. Debbie Guillen MD Attending Provider Active Team Status: Inactive Member Role Status Dates Dr. Dell Michaud MD Primary Care Provider Activ e Dr. Debbie Guillen MD Attending Provider, Referr ing Provider Active Team Status: Active Member Role Status Dates Dr. Carlos Michaud MD Primary Care Provider Acti ve Team Status: Inactive Member Role Status Dates Dr. Carlos Michaud MD Primary Care Provider Acti ve Start: May 24, 2024 End: May 24, 2024 Dr. Debbie Guillen MD Attending Provider Active Start: May 24, 2024 End: May 24, 2024 Dr. Debbie Guillen MD Referring Provider Active Start: May 24, 2024 End: May 24, 2024 Team Status: Inactive Member Role Status Dates Dr. Carlos Michaud MD Primary Care Provider Acti ve Start: May 24, 2024 End: May 24, 2024 Dr. Carlos Michaud MD Referring Provider Active Start: May 24, 2024 End: May 24, 2024 Dr. Debbie Guillen MD Attending Provider Active Start: May 24, 2024 End: May 24, 2024 INFORMATION SOURCE (unrecogn ized section and content) DATE CREATED AUTHOR 12/29/2024 [facility] FOR RECORDS PERTAINING TO PATIENTS WHO ARE OR HAVE BEEN ENROLLED IN A CHEMICAL DEPENDENCY/SUBSTANCEABUSE PROGRAM, SOME INFORMATION MAY BE OMITTED. This clinical summary was aggregated from multiple sources. Caution should be exercised in using it in the provision of clinical care. This summary normalizes information from multiple sources, and as a consequence, information in this document may materially change the coding, format and clinical context of patient data. In addition, data may be omitted in some cases. CLINICAL DECISIONS SHOULD BE BASED ON THE PRIMARY CLINICAL RECORDS. [employer] provides no warranty or guarantee of the accuracy or completeness of information in this document.
== END | disposition home or self-care (01) ==
LOC: OPUS 14:25 → US 14:25
PROVIDERS: PCP Family Medicine; Referring Provider Nurse Practitioner Women's Health; Visit Provider Nurse Practitioner Women's Health
DX: N83.202 Unspecified ovarian cyst, left side (principal)
CPT/HCPCS: 76830; 76856